=== PATIENT | male | born 1990 | race Caucasian/White ===

== ENCOUNTER 2021-01-06 13:00 | Emergency (ER) | payer BC, SELFPAY ==
[2021-01-06] MEDS ORDERED: LIDOCAINE VISCOUS 2% SOLN 15 ML UDC ONE (15:47)
[2021-01-06] MEDS ORDERED: MAGNES/ALUMIN/SIMET 30ML UCUP ONE (15:47)
--- NOTE | 2021-01-06 15:51 | RAD REPORT ---
EXAM DESCRIPTION: RAD - Chest Single View - 01/06/2021 3:42 pm CLINICAL HISTORY: CHEST PAIN COMPARISON: No comparisons FINDINGS: No evidence of edema or pneumonia. The heart size is within normal limits.No acute osseous abnormality. No significant pleural effusions or pneumothorax. IMPRESSION: No acute cardiopulmonary disease.
--- NOTE | 2021-01-06 15:58 | ER ---
Nurse's Notes [facility] Name: Tavares Sherwood Age: 31 yrs Sex: Male : 1990 Arrival Date: 01/06/2021 Time: 13:05 Bed DIS2 Private MD: Diagnosis: Pain in throat;Contact with and (suspected) exposure to hazardous, chiefly nonmedicinal, chemicals Presentation: 01/06 13:45 Chief complaint: Patient states: Pt reports exposure to sulfuric acid fumes 1 week ago, ss c/o sore throat, burning when swallowing. Coronavirus screen: Client denies travel out of the [place] in the last 14 days. Ebola Screen: Patient negative for fever greater than or equal to 101.5 degrees Fahrenheit, and additional compatible Ebola Virus Disease symptoms Patient denies exposure to infectious person. Patient denies travel to an Ebola-affected area in the 21 days before illness onset. Initial Sepsis Screen: Does the patient meet any 2 criteria? No. Patient's initial sepsis screen is negative. Does the patient have a suspected source of infection? No. Patient's initial sepsis screen is negative. Risk Assessment: Do you want to hurt yourself or someone else? Patient reports no desire to harm self or others. Onset of symptoms was December 30, 2020. 13:45 Method Of Arrival: Ambulatory ss 13:45 Acuity: XENIA 4 ss Triage Assessment: 13:47 General: Appears in no apparent distress. Behavior is calm, cooperative, appropriate ss for age. Pain: Complains of pain in throat. EENT: Throat is reddened Reports pain when swallowing. Historical: - Allergies: 13:47 No Known Allergies; ss - Home Meds: 13:47 None [Active]; ss - PMHx: 13:47 None; ss - Immunization history:: Client reports having NOT received the Covid vaccine. Last tetanus immunization: not indicated for visit today. - Social history:: Smoking status: Patient reports the use of cigarette tobacco products, smokes one-half pack cigarettes per day. Screenin:50 Abuse screen: Denies threats or abuse. Denies injuries from another. Nutritional ss screening: No deficits noted. Tuberculosis screening: Never had TB. Fall Risk None identified. Vital Signs: 13:45 BP 132 / 76; Pulse 83; Resp 15; Temp 98.0; Pulse Ox 100% on R/A; Weight 81.65 kg; ss Height 0 ft. 0 in. (1 cm); Pain 10/10; 13:45 Body Mass Index 697439.27 (81.65 kg, 1 cm) ss ED Course: 13:05 Patient arrived in ED. mr 13:47 Triage completed. ss 15:23 Jillian Burroughs FNP-C [facility] kb 15:23 Jb Garcia MD is Attending Physician. kb 15:42 Chest Single View XRAY In Process Unspecified. EDMS 15:50 Patient has correct armband on for positive identification. Bed in low position. Call ss light in reach. Side rails up X 1. 16:13 Autumn Okeefe, RN is Primary Nurse. ss 16:13 No provider procedures requiring assistance completed. Patient did not have IV access ss during this emergency room visit. Administered Medications: 15:27 Drug: GI Cocktail without - (Maalox Suspension 30 ml, Lidocaine Liquid 2 % 15 kb ml) Route: PO; 16:13 Follow up: Response: No adverse reaction ss Outcome: 15:50 Discharged to home ambulatory. ss 15:50 Condition: good 15:57 Discharge ordered by MD. kb 16:00 Discharge instructions given to patient, Instructed on discharge instructions, follow ss up and referral plans. Demonstrated understanding of instructions, follow-up care. 16:16 Patient left the ED. ss Signatures: Dispatcher [employer] EDNY Jillian Burroughs FNP-C FNP-Ckb Anita Mena mr Autumn Okeefe, RN RN ss
--- NOTE | 2021-01-06 15:58 | EDPHYS ---
Physician Documentation [facility] Name: Tavares Sherwood Age: 31 yrs Sex: Male : 1990 Arrival Date: 01/06/2021 Time: 13:05 Bed DIS2 Private MD: ED Physician Jb Garcia HPI: 01/06 16:06 This 31 yrs old Male presents to ER via Ambulatory with complaints of throat kb sores from chemical exposure. 16:06 The patient presents with sore throat. The patient describes throat pain as burning. kb Onset: The symptoms/episode began/occurred last week. Severity of symptoms: At their worst the symptoms were mild, moderate, in the emergency department the symptoms are unchanged. Modifying factors: The symptoms are alleviated by nothing, the symptoms are aggravated by swallowing, Patient's oral intake status: good. Associated signs and symptoms: Pertinent positives: chest pain, Pertinent negatives chills, cough, diarrhea, dysphagia, earache, fever, flu-like symptoms, headache, nausea, rhinorrhea, shortness of breath, sore throat, vomiting. The patient has not experienced similar symptoms in the past. The patient has not recently seen a physician. Pt states he inhaled some chemical fumes at work last week. States he has had burning to throat and down to chest immediately following inhalation. States it isn't getting better so he wanted to get it checked. Historical: - Allergies: 13:47 No Known Allergies; ss - Home Meds: 13:47 None [Active]; ss - PMHx: 13:47 None; ss - Immunization history:: Client reports having NOT received the Covid vaccine. Last tetanus immunization: not indicated for visit today. - Social history:: Smoking status: Patient reports the use of cigarette tobacco products, smokes one-half pack cigarettes per day. ROS: 16:05 Constitutional: Negative for fever, chills, and weight loss. kb 16:05 ENT: Positive for sore throat. 16:05 Cardiovascular: Positive for Burning felt down chest with inspiration. 16:05 All other systems are negative. Exam: 16:03 Constitutional: This is a well developed, well nourished patient who is awake, alert, kb and in no acute distress. Head/Face: Normocephalic, atraumatic. Cardiovascular: Regular rate and rhythm with a normal S1 and S2. No gallops, murmurs, or rubs. No pulse deficits. Respiratory: Respirations even and unlabored. No increased work of breathing, no retractions or nasal flaring. Abdomen/GI: Soft, non-tender. No distention Skin: Warm, dry with normal turgor. Normal color. MS/ Extremity: Pulses equal, no cyanosis. Neurovascular intact. Full, normal range of motion. Neuro: Awake and alert, GCS 15, oriented to person, place, time, and situation. Moves all extremities. Normal gait. Psych: Awake, alert, with orientation to person, place and time. Behavior, mood, and affect are within normal limits. 16:03 ENT: Mouth: two areas of redness to soft palate, Posterior pharynx: Airway: normal, no evidence of obstruction, Tonsils: are normal in appearance, Uvula: normal, midline, erythema, that is mild. Vital Signs: 13:45 BP 132 / 76; Pulse 83; Resp 15; Temp 98.0; Pulse Ox 100% on R/A; Weight 81.65 kg; ss Height 0 ft. 0 in. (1 cm); Pain 10/10; 13:45 Body Mass Index 200205.27 (81.65 kg, 1 cm) ss MDM: 15:23 Patient medically screened. kb 15:55 Data reviewed: vital signs, nurses notes. Data interpreted: Pulse oximetry: on room air kb is 100 %. Interpretation: normal. Counseling: I had a detailed discussion with the patient and/or guardian regarding: the historical points, exam findings, and any diagnostic results supporting the discharge/admit diagnosis, radiology results, the need for outpatient follow up, a family practitioner, to return to the emergency department if symptoms worsen or persist or if there are any questions or concerns that arise at home. 01/06 15:12 Order name: Strep cp 01/06 15:26 Order name: Chest Single View XRAY; Complete Time: 15:55 kb Administered Medications: 15:27 Drug: GI Cocktail without - (Maalox Suspension 30 ml, Lidocaine Liquid 2 % 15 kb ml) Route: PO; 16:13 Follow up: Response: No adverse reaction ss Disposition Summary: 01/06/21 15:57 Discharge Ordered Location: Home kb Condition: Stable kb Diagnosis - Pain in throat kb - Contact with and (suspected) exposure to hazardous, chiefly nonmedicinal, chemicals kb Followup: kb - With: Emergency Department - When: As needed - Reason: Worsening of condition Followup: kb - With: Private Physician - When: 2 - 3 days - Reason: Recheck today's complaints, Continuance of care, Re-evaluation by your physician Discharge Instructions: - Discharge Summary Sheet kb - Sore Throat, [id number] kb - Chemical Inhalation Injury, Adult kb Forms: - Medication Reconciliation Form kb - Thank You Letter kb - Work release form kb - Antibiotic Education kb - Prescription Opioid Use kb Addendum: 01/09/2021 07:09 Co-signature as Attending Physician, Jb Garcia MD I agree with the assessment and k dr plan of care. Signatures: Dispatcher [employer] EDMS Jillian Burroughs, CELL SUPPORT OPERATOR-C CELL SUPPORT OPERATOR-Jb Roche MD MD [facility] Autumn Okeefe, RN RN ss
[2021-01-06 16:22] VITALS: BP 132/76; TEMP 98; O2SAT 100
== END 2021-01-06 16:16 | disposition home or self-care (01) ==
LOC: ER 13:00
DX: R07.0 Pain in throat (principal); Z77.098 Contact with and (suspected) exposure to other hazardous, chiefly nonmedicinal, chemicals; F17.210 Nicotine dependence, cigarettes, uncomplicated
CPT/HCPCS: 71045; 99283

== ENCOUNTER 2022-04-06 11:16 | Emergency (ER) | payer SELFPAY ==
--- NOTE | 2022-04-06 13:57 | EDPHYS ---
Physician Documentation [facility] Name: Tavares Sherwood Age: 32 yrs Sex: Male : 1990 Arrival Date: 04/06/2022 Time: 11:17 Bed 11 Private MD: ED Physician Jb Garcia HPI: 04/06 13:53 This 32 yrs old Male presents to ER via Ambulatory with complaints of neck jl9 spasm. Patient reports overstretching while lifting a tire a few days. ago. . 13:53 The patient or guardian complains of pain. The symptoms are located at the C7. Onset: jl9 The symptoms/episode began/occurred 2 day(s) ago. Context: The problem was sustained at home, The neck injury/problem resulted from lifting. Associated signs and symptoms: The patient has no apparent associated signs or symptoms. The pain does not radiate. Modifying factors: The symptoms are alleviated by remaining still, the symptoms are aggravated by movement. Severity of symptoms: in the emergency department the symptoms a " 2" out of "10". Historical: - Allergies: 11:47 No Known Allergies; ss - Home Meds: 11:47 None [Active]; ss - PMHx: 11:47 None; ss - PSHx: 11:47 None; ss - Immunization history:: Client reports receiving the 2nd dose of the Covid vaccine. - Social history:: Smoking status: Patient reports the use of cigarette tobacco products, smokes one-half pack cigarettes per day. ROS: 13:54 Constitutional: Negative for fever, chills, and weight loss, Eyes: Negative for injury, jl9 pain, redness, and discharge, ENT: Negative for injury, pain, and discharge, Neck: Negative for injury, pain, and swelling, Cardiovascular: Negative for chest pain, palpitations, and edema, Respiratory: Negative for shortness of breath, cough, wheezing, and pleuritic chest pain, Abdomen/GI: Negative for abdominal pain, nausea, vomiting, diarrhea, and constipation. 13:54 : Negative for injury, bleeding, discharge, and swelling, MS/Extremity: Negative for injury and deformity, Skin: Negative for injury, rash, and discoloration, Neuro: Negative for headache, weakness, numbness, tingling, and seizure, Psych: Negative for depression, anxiety, suicide ideation, homicidal ideation, and hallucinations, Allergy/Immunology: Negative for hives, rash, and allergies, Endocrine: Negative for neck swelling, polydipsia, polyuria, polyphagia, and marked weight changes, Hematologic/Lymphatic: Negative for swollen nodes, abnormal bleeding, and unusual bruising. 13:54 Back: Positive for pain with movement, of the posterior cervical area. Exam: 13:54 Constitutional: This is a well developed, well nourished patient who is awake, alert, jl9 and in no acute distress. Head/Face: Normocephalic, atraumatic. Eyes: Pupils equal round and reactive to light, extra-ocular motions intact. Lids and lashes normal. Conjunctiva and sclera are non-icteric and not injected. Cornea within normal limits. Periorbital areas with no swelling, redness, or edema. ENT: Mucous membranes moist. Neck: Trachea midline, no thyromegaly or masses palpated, and no cervical lymphadenopathy. Supple, full range of motion without nuchal rigidity, or vertebral point tenderness. No Meningismus. Chest/axilla: Normal chest wall appearance and motion. Nontender with no deformity. No lesions are appreciated. Cardiovascular: Regular rate and rhythm with a normal S1 and S2. No gallops, murmurs, or rubs. Normal PMI, no JVD. No pulse deficits. Respiratory: Lungs have equal breath sounds bilaterally, clear to auscultation and percussion. No rales, rhonchi or wheezes noted. No increased work of breathing, no retractions or nasal flaring. Abdomen/GI: Soft, non-tender, with normal bowel sounds. No distension or tympany. No guarding or rebound. No evidence of tenderness throughout. 13:54 Skin: Warm, dry with normal turgor. Normal color with no rashes, no lesions, and no evidence of cellulitis. MS/ Extremity: Pulses equal, no cyanosis. Neurovascular intact. Full, normal range of motion. Neuro: Awake and alert, GCS 15, oriented to person, place, time, and situation. Cranial nerves II-XII grossly intact. Motor strength 5/5 in all extremities. Sensory grossly intact. Cerebellar exam normal. Normal gait. Psych: Awake, alert, with orientation to person, place and time. Behavior, mood, and affect are within normal limits. 13:54 Back: pain, that is mild, ROM is painful, normal spinal alignment noted, CVA tenderness, is absent, muscle spasm, is appreciated in the posterior cervical area. Vital Signs: 11:45 BP 113 / 87; Pulse 60; Resp 15; Temp 98.7(TE); Pulse Ox 98% on R/A; Weight 81.65 kg; ss Height 5 ft. 11 in. (180.34 cm); Pain 2/10; 11:45 Body Mass Index 25.10 (81.65 kg, 180.34 cm) MDM: 12:42 Patient medically screened. jl9 13:55 Data reviewed: vital signs, nurses notes. Counseling: I had a detailed discussion with jl the patient and/or guardian regarding: the historical points, exam findings, and any diagnostic results supporting the discharge/admit diagnosis, the need for outpatient follow up, to return to the emergency department if symptoms worsen or persist or if there are any questions or concerns that arise at home. Administered Medications: 14:10 Drug: Cyclobenzaprine 10 mg Route: PO; 14:10 Follow up: Response: Medication administered at discharge. 14:10 Drug: Ibuprofen 600 mg Route: PO; 14:10 Follow up: Response: No adverse reaction; Medication administered at discharge. Disposition Summary: 04/06/22 13:55 Discharge Ordered Location: Home jl9 Condition: Stable jl9 Diagnosis - Strain of muscle, fascia and tendon at neck level jl9 Followup: jl9 - With: Private Physician - When: 1 - 2 days - Reason: Recheck today's complaints, Continuance of care, Re-evaluation by your physician Discharge Instructions: - Discharge Summary Sheet jl9 - Muscle Strain, Przt-oo-Haos jl9 Forms: - Medication Reconciliation Form jl9 - Work release form ss - Thank You Letter jl9 - Antibiotic Education jl9 - Prescription Opioid Use jl9 Prescriptions: - Ibuprofen 800 mg Oral Tablet - take 1 tablet by ORAL route every 12 hours As needed take with food; 20 tablet; jl9 Refills: 0, Product Selection Permitted - Cyclobenzaprine 10 mg Oral Tablet - take 1 tablet by ORAL route every 8 hours As needed; 30 tablet; Refills: 0, jl9 Product Selection Permitted Signatures: Autumn Okeefe RN RN Duncan Chandler jl9 Corrections: (The following items were deleted from the chart) 11:48 11:47 PSHx: None; ss ss
--- NOTE | 2022-04-06 13:57 | ER ---
Nurse's Notes [facility] Name: Tavares Sherwood Age: 32 yrs Sex: Male : 1990 Arrival Date: 04/06/2022 Time: 11:17 Bed 11 Private MD: Diagnosis: Strain of muscle, fascia and tendon at neck level Presentation: 04/06 11:45 Chief complaint: Patient states: Mid back and base of neck pain that began a week ago, ss has been getting progressively worse. Denies injury. Coronavirus screen: Client denies travel out of the [place] in the last 14 days. Ebola Screen: Patient denies exposure to infectious person. Patient denies travel to an Ebola-affected area in the 21 days before illness onset. Initial Sepsis Screen: Does the patient meet any 2 criteria? No. Patient's initial sepsis screen is negative. Does the patient have a suspected source of infection? No. Patient's initial sepsis screen is negative. Risk Assessment: Do you want to hurt yourself or someone else? Patient reports no desire to harm self or others. Onset of symptoms was March 30, 2022. 11:45 Method Of Arrival: Ambulatory ss 11:45 Acuity: XENIA 4 ss Historical: - Allergies: 11:47 No Known Allergies; ss - Home Meds: 11:47 None [Active]; ss - PMHx: 11:47 None; ss - PSHx: 11:47 None; ss - Immunization history:: Client reports receiving the 2nd dose of the Covid vaccine. - Social history:: Smoking status: Patient reports the use of cigarette tobacco products, smokes one-half pack cigarettes per day. Vital Signs: 11:45 BP 113 / 87; Pulse 60; Resp 15; Temp 98.7(TE); Pulse Ox 98% on R/A; Weight 81.65 kg; ss Height 5 ft. 11 in. (180.34 cm); Pain 2/10; 11:45 Body Mass Index 25.10 (81.65 kg, 180.34 cm) ED Course: 11:17 Patient arrived in ED. am2 11:47 Triage completed. ss 11:47 Arm band placed on right wrist. 12:42 Duncan Ni [facility] 9 12:42 Jb Garcia MD is Attending Physician. jl9 13:27 Jenny Lau, RN is Primary Nurse. iw 14:10 No provider procedures requiring assistance completed. Patient did not have IV access ss during this emergency room visit. Administered Medications: 14:10 Drug: Cyclobenzaprine 10 mg Route: PO; ss 14:10 Follow up: Response: Medication administered at discharge. ss 14:10 Drug: Ibuprofen 600 mg Route: PO; ss 14:10 Follow up: Response: No adverse reaction; Medication administered at discharge. ss Outcome: 13:55 Discharge ordered by . gage 14:14 Discharged to home ambulatory. ss 14:14 Condition: good 14:14 Discharge instructions given to patient, Instructed on discharge instructions, follow up and referral plans. medication usage, Demonstrated understanding of instructions, follow-up care, medications, Prescriptions given X 2. 14:15 Patient left the ED. ss Signatures: Jenny Lau, RN RC Autumn Okeefe RN RN Ewa Jean Baptiste John jl9 Corrections: (The following items were deleted from the chart) 11:48 11:47 PSHx: None; ss ss
[2022-04-06] MEDS ORDERED: CYCLOBENZAPRINE 10 MG TAB ONE (14:08)
[2022-04-06] MEDS ORDERED: IBUPROFEN 200 MG TAB PO ONE (14:09)
[2022-04-06 14:51] VITALS: BP 113/87; TEMP 98.7; O2SAT 98
== END 2022-04-06 14:15 | disposition home or self-care (01) ==
LOC: ER 11:16
DX: S16.1XXA Strain of muscle, fascia and tendon at neck level, initial encounter (principal); F17.210 Nicotine dependence, cigarettes, uncomplicated
CPT/HCPCS: 99283